=== PATIENT | male | born 1940 | race Caucasian/White ===

== ENCOUNTER → 2016-11-15 | Outpatient (CLI) | payer OTHER, BC ==
--- NOTE | 2016-11-15 19:09 | DX ---
Bilateral Knees - Six Views Total November 15, 2016 Indication: Follow up bilateral total knee replacement. Comparison: Bilateral knee series dated October 04, 2016. 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 No perihardware fracture or lucency has developed. A moderate right suprapatellar effusion does persist. No significant effusion on the left. Impression: 1. Well-seated bilateral total knee arthroplasties. No evidence of loosening or fracture. 2. Persistent moderate right knee effusion.
== END ==
LOC: BMCIMAGING 13:21
PROVIDERS: ATTEND Physician Assistant
DX: Z09 Encounter for follow-up examination after completed treatment for conditions other than malignant neoplasm (principal); Z96.653 Presence of artificial knee joint, bilateral; M25.461 Effusion, right knee

== ENCOUNTER → 2017-02-14 | Outpatient (CLI) | payer OTHER, BC | LOC: BMCIMAGING 10:04 | PROVIDERS: ATTEND Physician Assistant | DX: Z96.653 Presence of artificial knee joint, bilateral (principal); M25.462 Effusion, left knee; M25.461 Effusion, right knee ==

== ENCOUNTER → 2017-08-16 | Outpatient (CLI) | payer OTHER, BC | LOC: BMCIMAGING 09:40 | PROVIDERS: ATTEND Orthopaedic Surgery | DX: M25.561 Pain in right knee (principal); M25.562 Pain in left knee; Z96.651 Presence of right artificial knee joint; Z96.652 Presence of left artificial knee joint ==